=== PATIENT | female | born 1960 | race American Indian/Alaskan Native ===

== ENCOUNTER 2018-06-14 02:02 | Emergency (ER) | payer OTHER ==
--- NOTE | 2018-06-14 07:35 | Emergency Department Report ---
ED Abdominal Pain HPI - General Chief Complaint: Abdominal Pain Stated Complaint: ABD PAIN Time Seen by Provider: 06/14/18 07:34 Source: patient Mode of arrival: Ambulatory Limitations: No Limitations - History of Present Illness Initial Comments: The 8-year-old female states that she developed nausea vomiting and epigastric discomfort, after eating at [employer]. He states that pain has subsided. It was nonradiating and nonpleuritic. There was no signs of GI bleeding. This occurred at about 6:30 PM. She does not report subsequent diarrhea. She states that she has not had a similar episode. She denies any fever or chills or respiratory symptoms. MD Complaint: abdominal pain -: Gradual, minutes(s), hour(s) Location: epigastric Radiation: none Migration to: no migration Severity: moderate Improves With: nothing Worsens With: other (after eating at [employer]) Context: other (as above) Associated Symptoms: nausea, vomiting. denies: chills, constipation, dysuria, hematemesis - Related Data Previous Rx's Medication Instructions Recorded Last Taken Type Lansoprazole [Prevacid 24Hr] 15 mg PO BID #20 capsule. 06/14/18 Unknown Rx Allergies Allergy/AdvReac Type Severity Reaction Status Date / Time No Known Allergies Allergy Unverified 06/14/18 02:23 ED Review of Systems ROS: Stated complaint: ABD PAIN Other details as noted in HPI Constitutional: denies: chills, fever Eyes: denies: eye pain, eye discharge, vision change ENT: denies: ear pain, throat pain Respiratory: denies: cough, shortness of breath, wheezing Cardiovascular: denies: chest pain, palpitations Endocrine: no symptoms reported Gastrointestinal: abdominal pain, nausea, vomiting. denies: diarrhea Genitourinary: denies: urgency, dysuria, discharge Musculoskeletal: denies: back pain, joint swelling, arthralgia Skin: denies: rash, lesions Neurological: denies: headache, weakness, paresthesias Psychiatric: denies: anxiety, depression Hematological/Lymphatic: denies: easy bleeding, easy bruising ED Past Medical Hx - Past Medical History Hx Hypertension: Yes - Surgical History Past Surgical History?: Yes Additional Surgical History: hysterectomy, bilateral foot surgery. - Social History Smoking Status: Never Smoker Substance Use Type: None - Medications Home Medications: Home Medications Medication Instructions Recorded Confirmed Last Taken Type Lansoprazole [Prevacid 24Hr] 15 mg PO BID #20 capsule. 06/14/18 Unknown Rx ED Physical Exam - General Limitations: No Limitations General appearance: alert, in no apparent distress, obese - Head Head exam: Present: atraumatic, normocephalic - Eye Eye exam: Present: normal appearance. Absent: scleral icterus - ENT ENT exam: Present: mucous membranes moist - Neck Neck exam: Present: normal inspection - Respiratory Respiratory exam: Present: normal lung sounds bilaterally. Absent: respiratory distress - Cardiovascular Cardiovascular Exam: Present: regular rate, normal rhythm. Absent: systolic murmur, diastolic murmur, rubs, gallop - GI/Abdominal GI/Abdominal exam: Present: soft, normal bowel sounds. Absent: distended, tenderness, guarding, rebound, rigid, organomegaly, mass, bruit, pulsatile mass , hernia - Extremities Exam Extremities exam: Present: normal inspection - Back Exam Back exam: Present: normal inspection. Absent: CVA tenderness (R), CVA tenderness (L) - Neurological Exam Neurological exam: Present: alert, oriented X3, CN II-XII intact. Absent: motor sensory deficit - Psychiatric Psychiatric exam: Present: normal affect, normal mood - Skin Skin exam: Present: warm, dry, intact, normal color. Absent: rash ED Course Vital Signs 06/14/18 06/14/18 02:19 07:45 Temperature 99.9 F H 98.2 F Pulse Rate 104 H 92 H Respiratory 17 20 Rate O2 Sat by Pulse 100 98 Oximetry - Reevaluation(s) Reevaluation #1: On reexamination the patient is resting comfortably/sleeping. She is easily awoken. Her abdomen still benign. Her symptoms have resolved. We will check an EKG prior to discharge which is anticipated. 06/14/18 10:57 ED Medical Decision Making - Lab Data Result diagrams: 06/14/18 07:50 06/14/18 07:50 Laboratory Results - last 24 hr 06/14/18 06/14/18 06/14/18 07:50 07:50 07:50 WBC 10.3 RBC 4.92 Hgb 15.0 H Hct 43.2 H MCV 88 MCH 31 MCHC 35 H RDW 15.0 Plt Count 327 Seg Neutrophils % Certified Dialysis Technician Sodium 141 Potassium 3.9 Chloride 103.2 Carbon Dioxide 24 Anion Gap 18 BUN 12 Creatinine 0.7 Estimated GFR > 60 BUN/Creatinine Ratio 17 Glucose 123 H Calcium 9.6 Total Bilirubin 0.50 Direct Bilirubin < 0.2 Indirect Bilirubin < 0.2 AST 26 ALT 33 Alkaline Phosphatase 70 Troponin T < 0.010 Total Protein 7.9 Albumin 4.6 Albumin/Globulin Ratio 1.4 Lipase 21 Urine Color Urine Turbidity Urine pH Ur Specific Byron Urine Protein Urine Glucose (UA) Urine Ketones Urine Blood Urine Nitrite Urine Bilirubin Urine Urobilinogen Ur Leukocyte Esterase Urine WBC (Auto) Urine RBC (Auto) U Epithel Cells (Auto) Urine Bacteria (Auto) Amorphous Crystals Urine Mucus 06/14/18 Unknown WBC RBC Hgb Hct MCV MCH MCHC RDW Plt Count Seg Neutrophils % Sodium Potassium Chloride Carbon Dioxide Anion Gap BUN Creatinine Estimated GFR BUN/Creatinine Ratio Glucose Calcium Total Bilirubin Direct Bilirubin Indirect Bilirubin AST ALT Alkaline Phosphatase Troponin T Total Protein Albumin Albumin/Globulin Ratio Lipase Urine Color Yellow Urine Turbidity Slightly-cloudy Urine pH 7.0 Ur Specific Byron 1.021 Urine Protein 30 mg/dl Urine Glucose (UA) Neg Urine Ketones Tr Urine Blood Neg Urine Nitrite Neg Urine Bilirubin Neg Urine Urobilinogen < 2.0 Ur Leukocyte Esterase Neg Urine WBC (Auto) 1.0 Urine RBC (Auto) 4.0 U Epithel Cells (Auto) 4.0 Urine Bacteria (Auto) 4+ Amorphous Crystals Few Urine Mucus Few - EKG Data -: EKG Interpreted by Me EKG shows normal: sinus rhythm, axis, intervals, QRS complexes, ST-T waves Rate: normal - EKG Data Interpretation: no acute changes - Radiology Data Radiology results: report reviewed (ultrasound no acute process) Critical care attestation.: If time is entered above; I have spent that time in minutes in the direct care of this critically ill patient, excluding procedure time. ED Disposition Clinical Impression: Gastritis Qualifiers: Gastritis type: unspecified gastritis Chronicity: acute Gastritis bleeding: without bleeding Qualified Code(s): K29.00 - Acute gastritis without bleeding Disposition: TO HOME OR SELFCARE Is pt being admited?: No Does the pt Need Aspirin: No Condition: Stable Instructions: Abdominal Pain (ED) Additional Instructions: Light diet and advance as tolerated. Follow-up with primary care physician or [facility]. Return any significant recurrent symptoms. Prescriptions: Lansoprazole [Prevacid 24Hr] 15 mg PO BID #20 capsule. Referrals: PRIMARY CARE, [Primary Care Provider] - 2-3 Days [facility] [Provider Group] - 3-5 Days Time of Disposition: 10:58
[2018-06-14] MEDS ORDERED: MORPHINE IV ONE (07:43)
[2018-06-14] MEDS ORDERED: ZOFRAN IV ONE (07:43)
[2018-06-14] MEDS ORDERED: NACL 0.9% 1000 ML 1,000 ML IV ONE (07:43)
[2018-06-14] MEDS ORDERED: PROTONIX IV ONE (07:43)
[2018-06-14 08:14] LABS: Amorphous Crystals,Urine Few; Bacteria,Urine 4+ /HPF (Negative); Bilirubin,Urine NEG (Negative); Blood,Urine NEG (Negative); Color,Urine Yellow (Yellow); Mucus,Urine FEW /HPF; Urobilinogen,Urine < 2.0 mg/dL (<2.0)
[2018-06-14 08:14] LABS: Alanine Aminotransferase 33 units/L (7-56); Albumin 4.6 g/dL (3.9-5); BUN/Creatinine Ratio 17; Blood Urea Nitrogen 12 mg/dL (7-17); Calcium 9.6 mg/dL (8.4-10.2); Hemolysis Index 15; Lipase 21 units/L (13-60)
[2018-06-14 08:18] LABS: Hematocrit 43.2 % (30.3-42.9); Mean Corpuscular HGB Conc 35 % (30-34); Mean Corpuscular Hemoglobin 31 pg (28-32); Mean Corpuscular Volume 88 fl (79-97); Platelet Count 327 K/mm3 (140-440); Red Blood Count 4.92 M/mm3 (3.65-5.03)
[2018-06-14 08:32] LABS: Bilirubin,Direct < 0.2 mg/dL (0-0.2)
--- NOTE | 2018-06-14 09:11 | Ultrasound Report ---
FINAL REPORT EXAM: US ABDOMEN COMPLETE HISTORY: Abdominal Pain Epigastric COMPARISONS: None FINDINGS: Grayscale and color Doppler ultrasound evaluation of the abdomen Liver is normal in size and contour. Hepatic parenchymal echogenicity is diffusely increased. No parenchymal lesion identified. No intra or extrahepatic biliary ductal dilatation. The common duct measures approximately 6 millimeters in caliber. Unremarkable sonographic appearance of the gallbladder. No cholelithiasis. Gallbladder wall measures approximately 1-2 millimeters in thickness. Imaged portion of the pancreatic head is sonographically unremarkable. The remainder of the pancreas is not well seen secondary to overlying bowel gas. The spleen is normal in size and echotexture. Imaged portions of the aorta and inferior vena cava are unremarkable. No abdominal ascites or free fluid in Smiley's pouch. The right kidney measures up to 11.1 cm and the left kidney measures up to 10.2 cm in length. Kidneys are without hydronephrosis or echogenic shadowing foci to suggest nephrolithiasis. IMPRESSION: Hepatic steatosis. Otherwise unremarkable abdominal ultrasound.
[2018-06-14 11:37] LABS: Anisocytosis 1+; Basophils % (Manual) 0 % (0.0-1.8); Eosinophils % (Manual) 0 % (0.0-4.3); Platelet Estimate Consistent w Auto; Total Cells Counted 100
[2018-06-14 11:46] VITALS: BP 116/78
== END 2018-06-14 11:46 | disposition home or self-care (01) ==
LOC: ED 02:02
DX: K29.00 Acute gastritis without bleeding (principal); I10 Essential (primary) hypertension; Z90.710 Acquired absence of both cervix and uterus
CPT/HCPCS: 36415; 76700; 80048; 80074; 81001; 83690; 84484; 85007; 85025; 93005; 93010; 96361; 96374; 96375; 99284; C9113; J2270; J2405; J7030